=== PATIENT | female | born 2005 | race Two or more races ===

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

== ENCOUNTER 2023-07-18 14:20 | Emergency (ER) | payer OTHER ==
[~2023-07-18] VITALS: Ht 157.5 cm; Wt 50.8 kg
[~2023-07-18 14:20] MED LIST: OMEPRAZOLE MAGN20 MG PO; PEPCID AC20 MG PO
[2023-07-18 16:38] LABS: HEMATOCRIT 35.8 % (36.0-45.00); HEMOGLOBIN 12.5 g/dL (12.0-15.00); MEAN CELL VOLUME 93.8 fL (80.00-100.00); MEAN CORPUSCULAR HEMOGLOBIN 32.6 pg (27.00-32.0); MEAN CORPUSCULAR HGB CONC 34.8 g/dl (32.0-36.0); PLATELET COUNT 257 K/uL (150-450); RED BLOOD COUNT 3.82 M/uL (4.00-6.00)
== END 2023-07-18 18:44 | disposition home or self-care (01) ==
LOC: EMR PED 14:20
PROVIDERS: Emergency Medicine Pediatric Emergency Medicine
DX: J00 Acute nasopharyngitis [common cold] (principal); R50.9 Fever, unspecified; R53.81 Other malaise; Z20.822 Contact with and (suspected) exposure to COVID-19

== ENCOUNTER 2024-02-25 15:41 | Emergency (ER) | payer OTHER ==
[~2024-02-25] VITALS: Ht 157.5 cm; Wt 52.2 kg
[2024-02-25 16:54] LABS: HEMATOCRIT 37.8 % (36.0-45.00); HEMOGLOBIN 13.2 g/dL (12.0-15.00); MEAN CELL VOLUME 92.5 fL (80.00-100.00); MEAN CORPUSCULAR HEMOGLOBIN 32.4 pg (27.00-32.0); PLATELET COUNT 309 K/uL (150-450); RED BLOOD COUNT 4.08 M/uL (4.00-6.00); RED CELL DISTRIBUTION WIDTH 13.4 % (11.5-14.5)
== END 2024-02-25 17:41 | disposition home or self-care (01) ==
LOC: ER 15:42 → EMR PED 15:47 → ER 15:47 → EMR PED 17:41
DX: R53.81 Other malaise (principal); F41.9 Anxiety disorder, unspecified